=== PATIENT | female | born 1995 | race African-American/Black ===

== ENCOUNTER 2023-05-10 06:08 | Emergency (ER) | payer BC ==
[~2023-05-10] VITALS: Ht 165.1 cm; Wt 74.8 kg
== END 2023-05-10 11:42 | disposition left against medical advice (07) ==
LOC: ER 06:08
DX: B34.9 Viral infection, unspecified (principal); R11.10 Vomiting, unspecified; J02.9 Acute pharyngitis, unspecified; Z20.822 Contact with and (suspected) exposure to COVID-19